=== PATIENT | female | born 1980 | race Two or more races ===

== ENCOUNTER 2017-01-03 10:52 | Emergency (ER) | payer OTHER ==
[~2017-01-03] VITALS: Ht 165.1 cm; Wt 104.3 kg
[~2017-01-03 10:52] MED LIST: HYDR-971 PO; SULF1TAB24 PO
[2017-01-03 11:05] VITALS: BP 131/90
[2017-01-03] MEDS ORDERED: AMOX1TAB61 PO (11:46)
--- NOTE | 2017-01-03 11:46 | PHYS DOC ---
Past Medical History Past Medical History: Other Additional Past Medical Histor: Gestational Diabetes with last . Past Surgical History: , Tubal ligation Alcohol Use: None Drug Use: None Adult General Chief Complaint Chief Complaint: COUGH HPI HPI Patient is a 36 year old female presents emergency department stating that she' s had a cough and congestion for the last 2 weeks. Patient states that she has been taking Mucinex [id number] to help with the secretions. Patient denies any fever, chills she denies any nausea or vomiting. Review of Systems Review of Systems Constitutional: Denies fever or chills [] Eyes: Denies change in visual acuity, redness, or eye pain [] HENT: nasal congestion denies sore throat [] Respiratory: cough and shortness of breath with breathing Cardiovascular: No additional information not addressed in HPI [] GI: Denies abdominal pain, nausea, vomiting, bloody stools or diarrhea [] : Denies dysuria or hematuria [] Musculoskeletal: Denies back pain or joint pain [] Integument: Denies rash or skin lesions [] Neurologic: Denies headache, focal weakness or sensory changes [] Allergies Allergies Allergies Coded Allergies Type Severity Reaction Last Updated Verified No Known Drug Allergies 06/08/16 No Physical Exam Physical Exam Constitutional: Well developed, well nourished, no acute distress, non-toxic appearance. [] HENT: Normocephalic, atraumatic, bilateral external ears normal, oropharynx moist, no oral exudates, nose normal. Bilateral tympanic membranes appear to be normal. Throat with erythematous no exudate or tonsillar swelling noted. Patient with frontal sinus tenderness no maxillary sinus tenderness noted Eyes: PERRLA, EOMI, conjunctiva normal, no discharge. [] Neck: Normal range of motion, no tenderness, supple, no stridor. [] Cardiovascular:Heart rate regular rhythm, no murmur [] Lungs & Thorax: Bilateral breath sounds clear to auscultation [] Skin: Warm, dry, no erythema, no rash. [] Back: No tenderness Extremities: No tenderness, no cyanosis, no clubbing, ROM intact, no edema. [] Neurologic: Alert and oriented X 3, normal motor function, normal sensory function, no focal deficits noted. [] Psychologic: Affect normal, judgement normal, mood normal. [] Current Patient Data Vital Signs Vital Signs Date Time Temp Pulse Resp B/P Pulse Ox O2 Delivery O2 Flow Rate FiO2 01/03/17 11:05 98.6 86 18 131/90 97 Room Air 98.6 EKG EKG [] Radiology/Procedures Radiology/Procedures [] Course & Med Decision Making Course & Med Decision Making Pertinent Labs and Imaging studies reviewed. (See chart for details) Patient was noted to have frontal sinus tenderness. She was recommended to use Sudafed to help with the frontal head pressure and discomfort. She was also recommended to use Mucinex DM to help with providing secretions as well as helping with the cough. She was encouraged to use Tylenol or ibuprofen for fever chills or generalized body aches and discomfort. Recommended plenty of fluids. Signs symptoms to return back to emergency department as been provided. Patient will be placed on Augmentin. Patient will be discharged home in stable condition. [] Dragon Disclaimer Dragon Disclaimer This electronic medical record was generated, in whole or in part, using a voice recognition dictation system. Departure Departure Impression: Primary Impression: Acute sinusitis Disposition: 01 HOME, SELF-CARE Condition: STABLE Referrals: NO PCP (PCP) Patient Instructions: Sinusitis, [id number] Additional Instructions: Home to rest. Medication as prescribed. Drink plenty of fluids. Sudafed may be taken to help with the sinus pressure take this instructed by statement clerks supervisor. Mucinex DM will help liquefy the secretions as well as helping with the cough. Please take this medication as prescribed by statement clerks supervisor as well. Tylenol or ibuprofen for fever chills or generalized body aches and discomfort. Follow-up primary care physician next 7-10 days. Return back to emergency prior signs symptoms of become worse. Scripts Amoxicillin/Potassium Clav (Augmentin 875-125 Tablet)1 Each Tablet1 Tab PO BID # 20 TAB Prov:AMY MARTINEZ APRN 01/03/17 AMY MARTINEZ APRN Jan 03, 2017 11:46
== END 2017-01-03 11:56 | disposition home or self-care (01) ==
LOC: ER 10:52
DX: J01.10 Acute frontal sinusitis, unspecified (principal)
CPT/HCPCS: 99283

== ENCOUNTER 2017-03-01 04:09 | Emergency (ER) | payer OTHER ==
[~2017-03-01] VITALS: Ht 165.1 cm; Wt 104.3 kg
[~2017-03-01 04:09] MED LIST changes: +AMOX1TAB61 PO
[2017-03-01 04:21] VITALS: BP 125/78
[2017-03-01] MEDS ORDERED: SULF1TAB24 PO (05:05)
--- NOTE | 2017-03-01 05:05 | PHYS DOC ---
Past Medical History Past Medical History: Other Additional Past Medical Histor: Gestational Diabetes with last . Past Surgical History: , Tubal ligation Alcohol Use: None Drug Use: None Adult General Chief Complaint Chief Complaint: VAGINAL PROBLEM HPI HPI Patient is a 36 year old female who presents here today secondary to a small abscess on her external labia majora. On the right side. Patient reports that she's had a large emesis in the past that need to be drained and a catheter was placed in it. She reports this feels slightly different. Patient denies any fevers shakes chills nausea vomiting diarrhea chest pain or shortness of breath. Patient's physical exam was significant for a small 0.5 x 0.5 cm folliculitis to her right external labia majora. Review of systems Constitutional: Denies fever or chills [] Eyes: Denies change in visual acuity, redness, or eye pain [] All other review systems are negative except as documented in the history of present illness portion. Physical exam Constitutional: Well developed, well nourished, no acute distress, non-toxic appearance. [] HENT: Normocephalic, atraumatic, bilateral external ears normal, oropharynx moist, no oral exudates, nose normal. [] Eyes: conjunctiva normal, no discharge. [] Neck: Normal range of motion, no tenderness, supple, no stridor. [] Cardiovascular:Heart rate regular rhythm, Lungs & Thorax: Bilateral breath sounds clear to auscultation [] Abdomen: Bowel sounds normal, soft, no tenderness, no masses, no pulsatile masses. [] Skin: Warm, dry, Back: No tenderness, Extremities: No tenderness, no cyanosis, Neurologic: Alert and oriented X 3, normal motor function, normal sensory function, no focal deficits noted. [] Psychologic: Affect normal, judgement normal, mood normal. [] Assessment and plan 36-year-old female who presents to the ER today with folliculitis of her labia. Patient be discharged home on Bactrim. There is no indication for incision and drainage. Patient stable for discharged home. Review of Systems Review of Systems Constitutional: Denies fever or chills [] Eyes: Denies change in visual acuity, redness, or eye pain [] HENT: Denies nasal congestion or sore throat [] Respiratory: Denies cough or shortness of breath [] Cardiovascular: No additional information not addressed in HPI [] GI: Denies abdominal pain, nausea, vomiting, bloody stools or diarrhea [] : Denies dysuria or hematuria [] Musculoskeletal: Denies back pain or joint pain [] Integument: Denies rash or skin lesions [] Neurologic: Denies headache, focal weakness or sensory changes [] Endocrine: Denies polyuria or polydipsia [] Current Medications Current Medications Current Medications Medications (Trade) Dose Ordered Sig/Jack Start Time Stop Time Status Last Admin Dose Admin Ibuprofen (Motrin) 600 mg 1X ONCE 03/01/17 05:30 03/01/17 05:30 DC 03/01/17 05:13 600 MG Trimethoprim/ Sulfamethoxazole (Bactrim Ds) 2 tab 1X ONCE 03/01/17 05:30 03/01/17 05:30 DC 03/01/17 05:13 2 TAB Allergies Allergies Allergies Coded Allergies Type Severity Reaction Last Updated Verified No Known Drug Allergies 06/08/16 No Physical Exam Physical Exam Constitutional: Well developed, well nourished, no acute distress, non-toxic appearance. [] HENT: Normocephalic, atraumatic, bilateral external ears normal, oropharynx moist, no oral exudates, nose normal. [] Eyes: PERRLA, EOMI, conjunctiva normal, no discharge. [] Neck: Normal range of motion, no tenderness, supple, no stridor. [] Cardiovascular:Heart rate regular rhythm, no murmur [] Lungs & Thorax: Bilateral breath sounds clear to auscultation [] Abdomen: Bowel sounds normal, soft, no tenderness, no masses, no pulsatile masses. [] Skin: Warm, dry, no erythema, no rash. [] Back: No tenderness, no CVA tenderness. [] Extremities: No tenderness, no cyanosis, no clubbing, ROM intact, no edema. [] Neurologic: Alert and oriented X 3, normal motor function, normal sensory function, no focal deficits noted. [] Psychologic: Affect normal, judgement normal, mood normal. [] Current Patient Data Vital Signs Vital Signs Date Time Temp Pulse Resp B/P (MAP) Pulse Ox O2 Delivery O2 Flow Rate FiO2 03/01/17 04:21 97.7 79 18 100 Room Air 97.7 EKG EKG [] Radiology/Procedures Radiology/Procedures [] Course & Med Decision Making Course & Med Decision Making Pertinent Labs and Imaging studies reviewed. (See chart for details) [] Dragon Disclaimer Dragon Disclaimer This electronic medical record was generated, in whole or in part, using a voice recognition dictation system. Departure Departure Impression: Primary Impression: Folliculitis Disposition: HOME, SELF-CARE Condition: IMPROVED Referrals: NO PCP (PCP) Patient Instructions: Abscess Scripts Sulfamethoxazole/Trimethoprim (BACTRIM DS TABLET) 1 Each Tablet 2 TAB PO BID for 10 Days, TAB Prov: KIMBERLY PALACIO MD 03/01/17 KIMBERLY PALACIO MD Mar 01, 2017 05:05
[2017-03-01] MEDS ORDERED: SMZ/TMP 800/160MG TABLET. PO ONE (05:30)
[2017-03-01] MEDS ORDERED: IBUPROFEN 600 MG TABLET. PO ONE (05:30)
== END 2017-03-01 05:16 | disposition home or self-care (01) ==
LOC: ER 04:09
DX: L73.9 Follicular disorder, unspecified (principal); Z98.51 Tubal ligation status
CPT/HCPCS: 99283

== ENCOUNTER 2017-09-25 13:30 | Emergency (ER) | payer OTHER ==
[2017-09-25] MEDS: IPRATRPIUM/ALBUTEROL 0.5/2.5MG 3 ML NEBU. NEB (14:43)
[2017-09-25] MEDS: predniSONE 10 MG TABLET PO (14:55)
== END 2017-09-25 15:15 | disposition home or self-care (01) ==
LOC: ER 13:30
DX: J20.9 Acute bronchitis, unspecified (principal); Z98.51 Tubal ligation status
CPT/HCPCS: 94640; 99283-25; J7512; J7620

== ENCOUNTER 2018-08-24 17:12 | Emergency (ER) | payer BC, OTHER ==
[~2018-08-24] VITALS: Ht 165.1 cm; Wt 95.7 kg
[~2018-08-24 17:12] MED LIST changes: +AZIT250T6 PO; +HYDR-3164 PO; -HYDR-971 PO; +PRED20TA PO; +PROAIR HFA8.5 GM INH
[2018-08-24 17:35] VITALS: BP 123/70
[2018-08-24] MEDS ORDERED: AMOX500C PO (17:45)
--- NOTE | 2018-08-24 17:45 | PHYS DOC ---
Past Medical History Past Medical History: Other Additional Past Medical Histor: Gestational Diabetes with last . Past Surgical History: , Tubal ligation Alcohol Use: Rarely Drug Use: None Adult General Chief Complaint Chief Complaint: SORE THROAT HPI HPI Patient is a 38 year old female who presents with sore throat for 3 days. Patient is also complaining of fevers up to 100. She is also complaining of a cough since this morning. Denies any nasal congestion. Review of Systems Review of Systems Constitutional: Reports fever Eyes: Denies change in visual acuity, redness, or eye pain [] HENT: Reports sore throat. Denies nasal congestion Respiratory: Reports cough, shortness of breath [] Cardiovascular: No additional information not addressed in HPI [] GI: Denies abdominal pain, nausea, vomiting, bloody stools or diarrhea [] : Denies dysuria or hematuria [] Musculoskeletal: Denies back pain or joint pain [] Integument: Denies rash or skin lesions [] Neurologic: Denies headache, focal weakness or sensory changes [] All other systems were reviewed and found to be within normal limits, except as documented in this note. Allergies Allergies Allergies Coded Allergies Type Severity Reaction Last Updated Verified No Known Drug Allergies 06/08/16 No Physical Exam Physical Exam Constitutional: Well developed, well nourished, no acute distress, non-toxic appearance. [] HENT: Normocephalic, atraumatic, bilateral external ears normal, oropharynx moist, no oral exudates, nose normal. [] +tonsils with mild erythema and exudate on the right side. +2 anterior cervical adenopathy. Eyes: PERRLA, EOMI, conjunctiva normal, no discharge. [] Neck: Normal range of motion, no tenderness, supple, no stridor. [] Cardiovascular:Heart rate regular rhythm, no murmur [] Lungs & Thorax: Bilateral breath sounds clear to auscultation [] Abdomen: Bowel sounds normal, soft, no tenderness, no masses, no pulsatile masses. [] Skin: Warm, dry, no erythema, no rash. [] Back: No tenderness, no CVA tenderness. [] Extremities: No tenderness, no cyanosis, no clubbing, ROM intact, no edema. [] Neurologic: Alert and oriented X 3, normal motor function, normal sensory function, no focal deficits noted. [] Psychologic: Affect normal, judgement normal, mood normal. [] Current Patient Data Vital Signs Vital Signs Date Time Temp Pulse Resp B/P (MAP) Pulse Ox O2 Delivery O2 Flow Rate FiO2 08/24/18 17:35 97.9 81 16 123/70 (87) 97 Room Air 97.9 EKG EKG [] Radiology/Procedures Radiology/Procedures [] Course & Med Decision Making Course & Med Decision Making Pertinent Labs and Imaging studies reviewed. (See chart for details) This is a 38-year-old female patient presented to the ED today with sore throat cough and a fever. Positive rapid strep. Discharged with amoxicillin for 10 days. Tylenol Motrin for pain or fever. Saltwater gargles recommended. Follow- up with PCP in 1-2 weeks. Provided return precautions and discharged in stable condition. Dragon Disclaimer Dragon Disclaimer This electronic medical record was generated, in whole or in part, using a voice recognition dictation system. Departure Departure Impression: Primary Impression: Acute streptococcal pharyngitis Additional Impressions: Cough Fever Disposition: 01 HOME, SELF-CARE Condition: STABLE Referrals: NO PCP (PCP) Follow-up in 1-2 weeks Patient Instructions: Cough, Adult, Fever, Adult, Strep Infections Additional Instructions: You have a positive rapid strep test. We put you on antibiotics, ensure you complete them. Take Tylenol/ Motrin for pain or fever. Use saltwater gargles. Follow-up with your doctor in 1-2 weeks. Scripts Amoxicillin (AMOXICILLIN) 500 Mg Capsule 1 CAP PO TID, #30 CAP Prov: MYRNA MART APRN 08/24/18 Problem Qualifiers Additional Impressions: Fever Fever type: unspecified Qualified Codes: R50.9 - Fever, unspecified FEMICRISTÓBALMYRNA Acuna APRN Aug 24, 2018 17:45
== END 2018-08-24 17:49 | disposition home or self-care (01) ==
LOC: ER 17:12
DX: J02.0 Streptococcal pharyngitis (principal); B95.4 Other streptococcus as the cause of diseases classified elsewhere; Z98.890 Other specified postprocedural states; Z98.51 Tubal ligation status
CPT/HCPCS: 87880; 99283

== ENCOUNTER 2018-09-24 16:13 | Emergency (ER) | payer BC ==
[~2018-09-24] VITALS: Ht 165.1 cm; Wt 95.7 kg
[~2018-09-24 16:13] MED LIST changes: +ALBU2.5V8 INH; +AMOX500C PO; -PROAIR HFA8.5 GM INH
[2018-09-24 16:35] VITALS: BP 138/77
--- NOTE | 2018-09-24 16:40 | PHYS DOC ---
Past Medical History Past Medical History: Other Additional Past Medical Histor: Gestational Diabetes with last . Past Surgical History: , Tubal ligation Alcohol Use: Rarely Drug Use: None Adult General Chief Complaint Chief Complaint: SORE THROAT HPI HPI Patient is a 38 year old female who presents with had strep 3 weeks ago and was treated. Patient states that she took all her antibiotics in a week after the antibiotics were done she began having a sore throat again. She denies fever , rhinorrhea, nasal congestion, cough, nausea, vomiting, chest pain, shortness of air, ear pain. Review of Systems Review of Systems Constitutional: Denies fever or chills [] Eyes: Denies change in visual acuity, redness, or eye pain [] HENT: Denies nasal congestion. +sore throat [] Respiratory: Denies cough or shortness of breath [] Cardiovascular: No additional information not addressed in HPI [] GI: Denies abdominal pain, nausea, vomiting, bloody stools or diarrhea [] : Denies dysuria or hematuria [] Musculoskeletal: Denies back pain or joint pain [] Integument: Denies rash or skin lesions [] Neurologic: Denies headache, focal weakness or sensory changes [] Endocrine: Denies polyuria or polydipsia [] All other systems were reviewed and found to be within normal limits, except as documented in this note. Allergies Allergies Allergies Coded Allergies Type Severity Reaction Last Updated Verified No Known Drug Allergies 06/08/16 No Physical Exam Physical Exam Constitutional: Well developed, well nourished, no acute distress, non-toxic appearance. [] HENT: Normocephalic, atraumatic, bilateral external ears normal, oropharynx moist, no oral exudates, nose normal. Throat red and slightly swollen[] Eyes: PERRLA, EOMI, conjunctiva normal, no discharge. [] Neck: Normal range of motion, no tenderness, supple, no stridor. [] Cardiovascular:Heart rate regular rhythm, no murmur [] Lungs & Thorax: Bilateral breath sounds clear to auscultation [] Abdomen: Bowel sounds normal, soft, no tenderness, no masses, no pulsatile masses. [] Skin: Warm, dry, no erythema, no rash. [] Back: No tenderness, no CVA tenderness. [] Extremities: No tenderness, no cyanosis, no clubbing, ROM intact, no edema. [] Neurologic: Alert and oriented X 3, normal motor function, normal sensory function, no focal deficits noted. [] Psychologic: Affect normal, judgement normal, mood normal. [] Current Patient Data Vital Signs Vital Signs Date Time Temp Pulse Resp B/P (MAP) Pulse Ox O2 Delivery O2 Flow Rate FiO2 09/24/18 16:35 97.8 76 18 138/77 (97) 98 Room Air 97.8 EKG EKG [] Radiology/Procedures Radiology/Procedures [] Course & Med Decision Making Course & Med Decision Making Patient is a 38 year old female who presents with had strep 3 weeks ago and was treated. Patient states that she took all her antibiotics in a week after the antibiotics were done she began having a sore throat again. She denies fever , rhinorrhea, nasal congestion, cough, nausea, vomiting, chest pain, shortness of air, ear pain. Alert and oriented. Ambulatory with a steady gait. Speaks in full clear sentences. Skin pink warm and dry. Mucous murmurs are moist. Abdomen is soft and nontender. Throat is red and slightly swollen but no exudates are seen. Strep Positive. Patient needs to follow up with primary care within the next week. Dragon Disclaimer Dragon Disclaimer This electronic medical record was generated, in whole or in part, using a voice recognition dictation system. Departure Departure Impression: Primary Impression: Acute streptococcal pharyngitis Disposition: 01 HOME, SELF-CARE Condition: STABLE Referrals: NO PCP (PCP) Patient Instructions: Strep Throat Additional Instructions: Follow-up with her primary care provider. Try warm salt water gargles. Use over- the-counter throat lozenges and throat sprays to help with pain. Take ibuprofen or Tylenol for pain. Scripts Amoxicillin (AMOXICILLIN) 875 Mg Tablet 1 TAB PO BID, #20 TAB Prov: AMY PISANO APRN 09/24/18 AMY PISANO APRN Sep 24, 2018 16:40
[2018-09-24] MEDS ORDERED: AMOX875T PO (17:45)
== END 2018-09-24 17:55 | disposition home or self-care (01) ==
LOC: ER 16:13
DX: J02.0 Streptococcal pharyngitis (principal); B95.5 Unspecified streptococcus as the cause of diseases classified elsewhere; Z98.890 Other specified postprocedural states; Z98.51 Tubal ligation status
CPT/HCPCS: 87880; 99283

== ENCOUNTER 2019-09-13 16:28 | Emergency (ER) | payer BC ==
[~2019-09-13] VITALS: Ht 165.1 cm; Wt 102.1 kg
[~2019-09-13 16:28] MED LIST changes: +AMOX875T PO
[2019-09-13 17:28] VITALS: BP 145/87
[2019-09-13] MEDS ORDERED: LIDOCAINE 2% VISCOUS 15 ML SOLUTION. MM ONE (17:45)
--- NOTE | 2019-09-13 18:33 | RAD ---
CT maxillofacial without contrast: Reason for examination: Right upper dental abscess with facial swelling. Helical images were obtained through the maxillofacial structures with no contrast administered. Reconstruction was performed in sagittal and coronal planes. Exposure: One or more of the following individualized dose reduction techniques were utilized for this examination: 1. Automated exposure control 2. Adjustment of the mA and/or kV according to patient size 3. Use of iterative reconstruction technique. The palmer of the orbits appear to be intact. Orbital structures show no acute abnormalities. The paranasal sinuses show some mild mucosal disease in the ethmoid air cells bilaterally. There is a small polypoid lesion in the sphenoid sinus measuring approximately 6 mm in size. The maxillary antra show a 1.4 cm polypoid lesion in the left maxillary sinus inferiorly. There is also complete opacification of the right maxillary antrum. There are dental caries present in the right molars with adjacent soft tissue edema and small air bubbles over a 1.4 cm craniocaudally, 2.2 cm in AP dimension and 0.9 cm transaxially consistent with an abscess lateral to the molars. No acute bony abnormality seen at the mandible. There are dental caries present in the mandibular dentition. No abnormality seen at the temporomandibular joints. No abnormalities are seen at the parotid or submandibular glands. A few small lymph nodes are present in the submandibular region measuring up to 1.7 cm in length. Muscular bundles appear to be symmetric. There is mild deviation of the nasal septum to the right. Nasal turbinates appear to be symmetric. Cervical spine visualized shows no acute fracture or subluxation and the intervertebral discs are maintained. IMPRESSION: Dental caries bilaterally in the maxillary and mandibular dentition especially at the right molars. Soft tissue edema and abscess measuring approximately 1.4 x 2.2 x 0.9 cm in craniocaudal, AP and transverse dimensions lateral to the dental caries in the right molars. Prominent reactive lymph nodes in the submandibular region. Complete opacification of the right maxillary antrum. Polypoid lesions in the left maxillary antrum and sphenoid sinus. Electronically signed by: Shani Nina MD (09/13/2019 6:30 PM) [id number]
[2019-09-13] MEDS ORDERED: CLIN150C14 PO (18:41)
[2019-09-13] MEDS ORDERED: CHLO15MO2 SWSP (18:41)
--- NOTE | 2019-09-13 18:41 | PHYS DOC ---
Past Medical History Past Medical History: Diabetes-Type II, Other Additional Past Medical Histor: Gestational Diabetes with last . Past Surgical History: , Tubal ligation Alcohol Use: Rarely Drug Use: None Adult General Chief Complaint Chief Complaint: DENTAL PROBLEM HPI HPI Patient is a 39 year old [f__sex] who presents with [] Review of Systems Review of Systems Constitutional: Denies fever or chills [] Eyes: Denies change in visual acuity, redness, or eye pain [] HENT: Denies nasal congestion or sore throat [] Respiratory: Denies cough or shortness of breath [] Cardiovascular: No additional information not addressed in HPI [] GI: Denies abdominal pain, nausea, vomiting, bloody stools or diarrhea [] : Denies dysuria or hematuria [] Musculoskeletal: Denies back pain or joint pain [] Integument: Denies rash or skin lesions [] Neurologic: Denies headache, focal weakness or sensory changes [] Endocrine: Denies polyuria or polydipsia [] All other systems were reviewed and found to be within normal limits, except as documented in this note. Current Medications Current Medications Current Medications Medications (Trade) Dose Ordered Sig/Jack Start Time Stop Time Status Last Admin Dose Admin Lidocaine HCl (Viscous Lidocaine) 15 ml 1X ONCE 09/13/19 17:45 09/13/19 17:46 DC 09/13/19 17:43 15 ML Allergies Allergies Allergies Coded Allergies Type Severity Reaction Last Updated Verified No Known Drug Allergies 06/08/16 No Physical Exam Physical Exam Constitutional: Well developed, well nourished, no acute distress, non-toxic appearance. [] HENT: Normocephalic, atraumatic, bilateral external ears normal, oropharynx moist, no oral exudates, nose normal. [] Eyes: PERRLA, EOMI, conjunctiva normal, no discharge. [] Neck: Normal range of motion, no tenderness, supple, no stridor. [] Cardiovascular:Heart rate regular rhythm, no murmur [] Lungs & Thorax: Bilateral breath sounds clear to auscultation [] Abdomen: Bowel sounds normal, soft, no tenderness, no masses, no pulsatile kalin s. [] Skin: Warm, dry, no erythema, no rash. [] Back: No tenderness, no CVA tenderness. [] Extremities: No tenderness, no cyanosis, no clubbing, ROM intact, no edema. [] Neurologic: Alert and oriented X 3, normal motor function, normal sensory function, no focal deficits noted. [] Psychologic: Affect normal, judgement normal, mood normal. [] Current Patient Data Vital Signs Vital Signs Date Time Temp Pulse Resp B/P (MAP) Pulse Ox O2 Delivery O2 Flow Rate FiO2 09/13/19 17:28 98.7 86 16 145/87 (106) 98 Room Air 98.7 EKG EKG [] Radiology/Procedures Radiology/Procedures PROCEDURE: CT MAXILLOFACIAL WO CONTRAST CT maxillofacial without contrast: Reason for examination: Right upper dental abscess with facial swelling. Helical images were obtained through the maxillofacial structures with no contrast administered. Reconstruction was performed in sagittal and coronal planes. Exposure: One or more of the following individualized dose reduction techniques were utilized for this examination: 1. Automated exposure control 2. Adjustment of the mA and/or kV according to patient size 3. Use of iterative reconstruction technique. The palmer of the orbits appear to be intact. Orbital structures show no acute abnormalities. The paranasal sinuses show some mild mucosal disease in the ethmoid air cells bilaterally. There is a small polypoid lesion in the sphenoid sinus measuring approximately 6 mm in size. The maxillary antra show a 1.4 cm polypoid lesion in the left maxillary sinus inferiorly. There is also complete opacification of the right maxillary antrum. There are dental caries present in the right molars with adjacent soft tissue edema and small air bubbles over a 1.4 cm craniocaudally, 2.2 cm in AP dimension and 0.9 cm transaxially consistent with an abscess lateral to the molars. No acute bony abnormality seen at the mandible. There are dental caries present in the mandibular dentition. No abnormality seen at the temporomandibular joints. No abnormalities are seen at the parotid or submandibular glands. A few small lymph nodes are present in the submandibular region measuring up to 1.7 cm in length. Muscular bundles appear to be symmetric. There is mild deviation of the nasal septum to the right. Nasal turbinates appear to be symmetric. Cervical spine visualized shows no acute fracture or subluxation and the intervertebral discs are maintained. IMPRESSION: Dental caries bilaterally in the maxillary and mandibular dentition especially at the right molars. Soft tissue edema and abscess measuring approximately 1.4 x 2.2 x 0.9 cm in craniocaudal, AP and transverse dimensions lateral to the dental caries in the right molars. Prominent reactive lymph nodes in the submandibular region. Complete opacification of the right maxillary antrum. Polypoid lesions in the left maxillary antrum and sphenoid sinus.[] Course & Med Decision Making Course & Med Decision Making Pertinent Labs and Imaging studies reviewed. (See chart for details) [] Dragon Disclaimer Dragon Disclaimer This electronic medical record was generated, in whole or in part, using a voice recognition dictation system. Departure Departure Impression: Primary Impression: Abscess, dental Additional Impression: Dentalgia Disposition: HOME, SELF-CARE Condition: STABLE Referrals: NO PCP (PCP) Patient Instructions: Dental Abscess Additional Instructions: Fill prescription(s) and use as directed. Follow up with dentist using the referral list provided. Return to the ER if symptoms worsen. Scripts Chlorhexidine Gluconate (PERIDEX) 15 Ml Mouthwash 15 ML SWSP BID for 7 Days, #473 ML 0 Refills [place] teeth before using to prevent staining. Swish for approximately 30 seconds before spitting. Prov: PRASANTH BYERS APRN 09/13/19 Clindamycin Hcl (CLINDAMYCIN HCL) 150 Mg Capsule 450 MG PO TID for 7 Days, #63 CAP 0 Refills Prov: PRASANTH BYERS APRN 09/13/19 Problem Qualifiers PRASANTH BYERS APRN Sep 13, 2019 18:41
== END 2019-09-13 18:50 | disposition home or self-care (01) ==
LOC: ER 16:28
DX: K04.6 Periapical abscess with sinus (principal); K08.89 Other specified disorders of teeth and supporting structures; E11.9 Type 2 diabetes mellitus without complications; Z98.51 Tubal ligation status; Z98.890 Other specified postprocedural states
CPT/HCPCS: 70486; 99284

== ENCOUNTER 2019-09-18 14:34 | Emergency (ER) | payer BC ==
[~2019-09-18] VITALS: Ht 165.1 cm; Wt 99.8 kg
[~2019-09-18 14:34] MED LIST changes: +CHLO15MO2 SWSP; +CLIN150C14 PO
[2019-09-18 15:20] VITALS: BP 138/74
[2019-09-18] MEDS ORDERED: DEXAMETHASONE 4 MG TABLET PO STA (15:35)
[2019-09-18] MEDS ORDERED: OSEL75CA PO (15:37)
[2019-09-18] MEDS ORDERED: ONDA4TAB12 PO (15:37)
[2019-09-18] MEDS ORDERED: BENZ100C PO (15:37)
--- NOTE | 2019-09-18 15:37 | PHYS DOC ---
Past Medical History Past Medical History: Diabetes-Type II, Other Additional Past Medical Histor: Gestational Diabetes with last . (NOE SANTOS APRN) Past Surgical History: , Tubal ligation (NOE SANTOS APRN) Alcohol Use: Rarely Drug Use: None (NOE SANTOS APRN) Adult General Chief Complaint Chief Complaint: FLU SYMPTOM HPI HPI Patient is a 39 year old female who presents with headache, sore throat, runny nose, cough that started this morning. Her son tested positive for the flu on Friday. She was able to keep fluids down at home and appears to be hydrated. (NOE SANTOS APRN) Review of Systems Review of Systems Constitutional: Reports fever or chills and body aches. Eyes: Denies change in visual acuity, redness, or eye pain [] HENT: denies nasal congestion, sore throat, and runny nose. Respiratory: Reports cough. Denies shortness of breath. Cardiovascular: No additional information not addressed in HPI [] GI: Reports nausea and vomiting. Denies abdominal pain, bloody stools or diarrhea [] : Denies dysuria or hematuria [] Musculoskeletal: Denies back pain or joint pain [] Integument: Denies rash or skin lesions [] Neurologic: Reports headache, denies focal weakness or sensory changes [] Endocrine: Denies polyuria or polydipsia [] Complete systems were reviewed and found to be within normal limits, except as documented in this note. (NOE SANTOS APRN) Current Medications Current Medications Current Medications Medications (Trade) Dose Ordered Sig/Jack Start Time Stop Time Status Last Admin Dose Admin Dexamethasone (Decadron) 10 mg 1X STAT 09/18/19 15:35 09/18/19 15:40 DC 09/18/19 15:53 10 MG (NOE BAUGH DO) Allergies Allergies Allergies Coded Allergies Type Severity Reaction Last Updated Verified No Known Drug Allergies 06/08/16 No (NOE BAUGH DO) Physical Exam Physical Exam Constitutional: Well developed, well nourished, no acute distress, non-toxic appearance. [] HENT: Normocephalic, atraumatic, bilateral external ears normal, bilateral tympanic membranes are pearly [place], oropharynx moist, no oral exudates, nose turbinates are inflamed. Eyes: PERRLA, EOMI, conjunctiva normal, no discharge. [] Neck: Normal range of motion, no tenderness, supple, no stridor. [] Cardiovascular:Heart rate regular rhythm, no murmur [] Lungs & Thorax: Bilateral breath sounds clear to auscultation [] Abdomen: Bowel sounds normal, soft, no tenderness, no masses, no pulsatile mas ses. [] Skin: Warm, dry, no erythema, no rash. [] Neurologic: Alert and oriented X 3, normal motor function, normal sensory fu nction, no focal deficits noted. [] Psychologic: Affect normal, judgement normal, mood normal. [] (NOE SANTOS APRN) Current Patient Data Vital Signs Vital Signs Date Time Temp Pulse Resp B/P (MAP) Pulse Ox O2 Delivery O2 Flow Rate FiO2 09/18/19 15:20 99.0 112 22 138/74 (95) 97 Room Air 99.0 (NOE BAUGH DO) EKG EKG [] (NOE SANTOS APRN) Radiology/Procedures Radiology/Procedures [] (NOE SANTOS APRN) Course & Med Decision Making Course & Med Decision Making Pertinent Labs and Imaging studies reviewed. (See chart for details) The patient appears to have the Flu clinically. Discussed with patient the importance of drinking plenty of fluids. I also discussed the importance of rest. It was discussed with the patient that she is contagious and to stay away from others until it has been a week since the start of her symptoms. Discussed with the patient that she can take Zyrtec per label instructions for runny nose. Also discussed the proper control of fever by rotating Tylenol and Ibuprofen at home. Will give the patient Decadron in the ER for symptom control. Will also prescribe Zofran for nausea. Will also prescribe Tamiflu. (NOE SANTOS APRN) Dragon Disclaimer Dragon Disclaimer This electronic medical record was generated, in whole or in part, using a voice recognition dictation system. (NOE SANTOS APRN) Departure Departure Impression: Primary Impression: Viral syndrome Disposition: HOME, SELF-CARE Condition: STABLE Referrals: NO PCP (PCP) Patient Instructions: Viral Syndrome Additional Instructions: Thank you for visiting [facility]. We appreciate you trusting us with your care. If any additional problems come up don't hesitate to return to visit us. Please follow up with your primary care provider so they can plan additional care if needed and know about the problem that you had. If symptoms worsen come back to the Emergency Department. Any concerning symptoms that start such as chest pain, shortness of air, weakness or numbness on one side of the body, running high fevers or any other concerning symptoms return to the ER. Please be aware that diabetes can cause your sugars to fluctuate while you are sick. This can cause additional issues. Please check your sugars often to ensure they are staying in a safe range and if you are on insulin please take as instructed by your primary care doctor. If you have any questions about this please let us know or contact your primary care provider for additional instruction about taking your insulin while you are sick. If you get concerned regarding your sugar while at home please do not hesitate to come back to the ER. Please fill your medications at any pharmacy and follow the prescription instructions. Please drink plenty of fluids. If unable to keep fluids down please return to ER. Please get Tylenol and Ibuprofen over the counter. Give each medication every 6 hours as directed by the medication labels. In order to utilize the peak of the medications stagger the medications to where the child is getting one of the medications every 3 hours. For example if you give Ibuprofen at 3 PM, you then give Tylenol at 6 PM and Ibuprofen again at 9 PM, and then Tylenol at midnight. Please get Zyrtec over the counter and take per label instructions for runny nose. Scripts Benzonatate (TESSALON PERLE) 100 Mg Capsule 100 MG PO TID PRN for COUGH, #21 CAP Prov: NOE SANTOS APRN 09/18/19 Oseltamivir Phosphate (TAMIFLU) 75 Mg Capsule 75 MG PO BID for FLU for 5 Days, #10 TAB 0 Refills Prov: NOE SANTOS APRN 09/18/19 Ondansetron (ONDANSETRON ODT) 4 Mg Tab.rapdis 1 TAB PO PRN Q6-8HRS PRN for NAUSEA, #16 TAB Prov: NOE SANTOS APRN 09/18/19 Attending Signature Attending Signature I have reviewed the PA/CEMENT [employer]ON APPRENTICE's note and plan of care. I was available for cons ultation as needed during the patient's visit in the emergency department. I agree with the clinical impression, plan, and disposition. (NOE BAUGH DO) NOE SANTOS APRN Sep 18, 2019 15:37 NOE BAUGH DO Sep 22, 2019 19:01
== END 2019-09-18 16:00 | disposition home or self-care (01) ==
LOC: ER 14:34
DX: B34.9 Viral infection, unspecified (principal); R11.2 Nausea with vomiting, unspecified; R05 Cough; R09.89 Other specified symptoms and signs involving the circulatory and respiratory systems; R50.9 Fever, unspecified; E11.9 Type 2 diabetes mellitus without complications; Z98.51 Tubal ligation status; Z98.890 Other specified postprocedural states
CPT/HCPCS: 99283; J8540

== ENCOUNTER 2019-10-18 18:28 | Emergency (ER) | payer BC ==
[~2019-10-18] VITALS: Ht 165.1 cm; Wt 100.0 kg
[~2019-10-18 18:28] MED LIST changes: +BENZ100C PO; +ONDA4TAB12 PO; +OSEL75CA PO
[2019-10-18 19:02] VITALS: BP 130/95
== END 2019-10-18 20:13 | disposition left against medical advice (07) ==
LOC: ER 18:28
DX: J02.9 Acute pharyngitis, unspecified (principal); R05 Cough; R09.81 Nasal congestion
CPT/HCPCS: 99281

== ENCOUNTER 2020-03-03 15:26 | Emergency (ER) | payer SELFPAY ==
[~2020-03-03] VITALS: Ht 165.1 cm; Wt 93.0 kg
[2020-03-03 16:09] VITALS: BP 116/66
--- NOTE | 2020-03-03 16:48 | PHYS DOC ---
Past Medical History Past Medical History: Diabetes-Type II, Other Additional Past Medical Histor: Gestational Diabetes with last . Past Surgical History: , Tubal ligation Smoking Status: Never Smoker Alcohol Use: Rarely Drug Use: None General Adult EDM: Chief Complaint: TOE PROBLEM HPI: HPI: Patient is a 39 year old female who presents for the past 3 to 4 days she had a left fifth toe pain and tenderness. She does not remember injuring it. She is diabetic and does have neuropathy in her feet. She rates her pain 8 out of 10. Review of Systems: Review of Systems: Musculoskeletal: Denies back pain. Left fifth toe joint pain. [] Heart Score: Risk Factors: Risk Factors: DM, Current or recent (<one month) smoker, HTN, HLP, family history of CAD, obesity. Risk Scores: Score 0 - 3: 2.5% MACE over next 6 weeks - Discharge Home Score 4 - 6: 20.3% MACE over next 6 weeks - Admit for Clinical Observation Score 7 - 10: 72.7% MACE over next 6 weeks - Early Invasive Strategies Allergies: Allergies: Allergies Coded Allergies Type Severity Reaction Last Updated Verified No Known Drug Allergies 06/08/16 No Physical Exam: PE: Constitutional: Well developed, well nourished, no acute distress, non-toxic appearance. [] HENT: Normocephalic, atraumatic, bilateral external ears normal, oropharynx moist, no oral exudates, nose normal. [] Eyes: PERRLA, EOMI, conjunctiva normal, no discharge. [] Neck: Normal range of motion, no tenderness, supple, no stridor. [] Cardiovascular:Heart rate regular rhythm, no murmur [] Lungs & Thorax: Bilateral breath sounds clear to auscultation [] Abdomen: Bowel sounds normal, soft, no tenderness, no masses, no pulsatile masses. [] Skin: Warm, dry, no erythema, no rash. [] Back: No tenderness, no CVA tenderness. [] Extremities: Left fifth toe tenderness, no cyanosis, no clubbing, ROM intact, no edema. [] Neurologic: Alert and oriented X 3, normal motor function, normal sensory function, no focal deficits noted. [] Psychologic: Affect normal, judgement normal, mood normal. [] Current Patient Data: Vital Signs: Vital Signs Date Time Temp Pulse Resp B/P (MAP) Pulse Ox O2 Delivery O2 Flow Rate FiO2 03/03/20 16:09 98.3 76 16 116/66 (83) 98 Room Air 98.3 EKG: EKG: [] Radiology/Procedures: Radiology/Procedures: [] Course & Med Decision Making: Course & Med Decision Making Pertinent Labs and Imaging studies reviewed. (See chart for details) Left fifth toe nail looks to be pushed up as if it were jammed. There is no laceration or wound. The toe which is very tender. There is no swelling seen. Patient can wiggle her toes but it is painful especially in the fifth toe. Denies any other foot pain. She is diabetic and does have neuropathy. She states she does not remember injuring it but she could have injured it. No signs of infection. Patient eloped. No x-rays were done. [] Dragon Disclaimer: Dragon Disclaimer: This electronic medical record was generated, in whole or in part, using a voice recognition dictation system. Departure Departure Impression: Primary Impression: Toe pain, left Disposition: 07 AGAINST MEDICAL ADVICE (eloped) Condition: STABLE Referrals: NO PCP (PCP) Justicifation of Admission Dx: Justifications for Admission: Justification of Admission Dx: N/A AMY PISANO COSMETIC ACCOUNT COORDINATOR Mar 03, 2020 16:48
== END 2020-03-03 17:10 | disposition left against medical advice (07) ==
LOC: ER 15:26
DX: M79.675 Pain in left toe(s) (principal); E11.9 Type 2 diabetes mellitus without complications; Z98.51 Tubal ligation status; Z98.890 Other specified postprocedural states
CPT/HCPCS: 99281

== ENCOUNTER 2020-05-03 10:21 | Emergency (ER) | payer OTHER ==
[~2020-05-03] VITALS: Ht 165.1 cm; Wt 105.0 kg
[2020-05-03 10:40] VITALS: BP 118/77
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
[2020-05-03] MEDS ORDERED: METH-38 PO (11:28)
[2020-05-03] MEDS ORDERED: NAPR-514 PO (11:28)
== END 2020-05-03 11:35 | disposition home or self-care (01) ==
LOC: ER 10:21
DX: S29.012A Strain of muscle and tendon of back wall of thorax, initial encounter (principal); T22.111A Burn of first degree of right forearm, initial encounter; E11.9 Type 2 diabetes mellitus without complications; V43.52XA Car driver injured in collision with other type car in traffic accident, initial encounter; Y92.488 Other paved roadways as the place of occurrence of the external cause; Y93.89 Activity, other specified; Y99.8 Other external cause status
CPT/HCPCS: 99283

== ENCOUNTER 2020-12-05 17:31 | Emergency (ER) | payer SELFPAY ==
[~2020-12-05] VITALS: Ht 165.1 cm; Wt 95.8 kg
[~2020-12-05 17:31] MED LIST changes: -CLIN150C14 PO; +CLIN150C15 PO; +METH-38 PO; +NAPR-514 PO
[2020-12-05] MEDS ORDERED: IV NORMAL SALINE 1000ML BAG 1,000 ML IV ONE (18:30)
[2020-12-05 18:40] LABS: BILIRUBIN,URINE SMALL (NEG); CLARITY,URINE TURBID; COLOR,URINE AMBER; NITRITE,URINE NEGATIVE (NEG); PH,URINE 5.5 (<5.0-8.0); PROTEIN,URINE 30 mg/dL (NEG-TRACE)
--- NOTE | 2020-12-05 18:55 | PHYS DOC ---
Past Medical History Past Medical History: Diabetes-Type II, Other Additional Past Medical Histor: Gestational Diabetes with last . Past Surgical History: , Tubal ligation Smoking Status: Never Smoker Alcohol Use: Rarely Drug Use: None General Adult EDM: Chief Complaint: VAGINAL PROBLEM HPI: HPI: Isa is a 40 y/o female with a hx of fallopian tube ligation who presents with a watery, bloody vaginal discharge with no clots that started on 11/13/2020. She has a subjective history of irregular periods, but does state she gets a period every month. Her last pap smear was 2 years ago, and it was normal. Isa does not currently have a PCP, nor an line production cook. Her last sexual contact was 3 months ago, and she does describe the penetration as irregularly painful. She says the pain is worse with penetration. The pain is in her left lower inguinal area. She describes the pain as dull and nonradiating. Isa states that her grandmother has cervical cancer but denies any other pertinent family history. The patient denies any menopausal symptoms such as hot flashes, mood swings. Review of Systems: Review of Systems: Constitutional: Denies fever or chills Eyes: Denies redness or eye pain HENT: Denies nasal congestion or sore throat Respiratory: Denies cough or shortness of breath Cardiovascular: Denies chest pain or palpitations GI: Reports lower abdominal pain, nausea, or vomiting : Denies dysuria, reports hematuria Musculoskeletal: Denies back pain or joint pain Integument: Denies rash or skin lesions Neurologic: Denies headache, focal weakness or sensory changes Complete systems were reviewed and found to be within normal limits, except as documented in this note. Heart Score: C/O Chest Pain: N/A Family History: Family History: The patient's grandmother had cervical cancer. Current Medications: Current Medications Medications (Trade) Dose Ordered Sig/Jack Start Time Stop Time Status Last Admin Dose Admin Sodium Chloride 1,000 ml @ 1,000 mls/hr 1X ONCE 12/05/20 18:30 12/05/20 19:29 Allergies: Allergies: Allergies Coded Allergies Type Severity Reaction Last Updated Verified No Known Drug Allergies 06/08/16 No Physical Exam: PE: Constitutional: Well developed, well nourished, no acute distress, non-toxic appearance HENT: Normocephalic, atraumatic Eyes: PERRL, EOMI, conjunctiva normal, no discharge Neck: Normal range of motion, no tenderness, supple, no cervical or supraclavicular lymphadenopathy Lungs & Thorax: No respiratory distress, equal chest rise and fall Abdomen: Negative Sousa's sign, tenderness to light and deep palpation of left lower quadrant, no umbilical nodule noted Pelvic: Snake Charmer Tamara RN, external genitalia normal, mild amount of blood noted in vaginal vault, no CMT, no adnexal tenderness Skin: Warm, dry, no erythema, eczematous rash on left elbow (chronic) Back: No tenderness, no CVA tenderness Extremities: No tenderness, ROM intact, no edema Neurologic: Alert and oriented X 3, normal motor function, normal sensory function, no focal deficits noted Psychologic: Affect normal, judgment normal Current Patient Data: Labs: Laboratory Tests Test 12/05/20 18:02 POC Urine HCG, Qualitative Hcg negative (Negative) Vital Signs: Vital Signs Date Time Temp Pulse Resp B/P (MAP) Pulse Ox O2 Delivery O2 Flow Rate FiO2 12/05/20 17:49 97.9 79 17 131/76 (94) 99 Room Air 97.9 EKG: EKG: [] Radiology/Procedures: Radiology/Procedures: PROCEDURE: TRANSVAGINAL INDICATION: Reason: menorrhagia / Spl. Instructions: / History: COMPARISON: None. TECHNIQUE: Grayscale and color ultrasound images uterus and adnexa. Transvaginal images are obtained as well as transabdominal images to better visualize obscured structures. FINDINGS: Uterus: 108 x 58 x 56 mm. Endometrial stripe is 11 mm. Right Ovary: 21 x 18 x 18 mm. Left Ovary: 29 x 27 x 17 mm. Vascular flow identified to bilateral ovaries. Large cystic mass within the left adnexa measuring 99 x 72 x 67 mm. Nabothian cysts at cervix. There is some internal debris. IMPRESSION: * Large cystic mass within the left adnexa with septation within. Possible causes would include cystic ovarian origin lesion such as cystadenoma or cystadenocarcinoma. Nonemergent follow-up pelvic MRI could further assess for complex component. * Hypoechoic lesion near the cervix could be from causes such as a nabothian cyst with debris within. Electronically signed by: Paul Carrasquillo MD (12/05/2020 7:39 PM) [id number] Course & Med Decision Making: Course & Med Decision Making Isa is a G3, P3 40 year-old patient who presents with approximately 1 month of clear, watery, bloody vaginal discharge. She reports a history of irregular menstruation, but does state that she has a period once a month. She states there is no chance she is , because she has had a fallopian tube ligation. Her last sexual contact was 3 months ago, and she reports pain with penetration. This is not normal for her. The chronicity of her symptoms make ectopic less likely in addition to her negative test. Furthermore, the timing of her symptoms make ovarian torsion less likely. Given the patient's age and symptoms, a TVUS will be ordered. In addition a pelvic exam and GC swab will be done. The patient's hemoglobin, vitals, and pain control were stable, so the determination was made to discharge the patient home. The ultrasound report was discussed in detail with the patient, and her questions were answered and she demonstrated an understanding of the findings. Isa was instructed to follow up with an line production cook as soon as she could. Isa states that she already has an upcoming appointment with a physician, but did not know their specialty. The patient is stable for discharge and is agreeable with the follow up plan. Akua Disclaimer: Akua Disclaimer: This electronic medical record was generated, in whole or in part, using a voice recognition dictation system. Departure Departure Impression: Primary Impression: Metrorrhagia Additional Impressions: Ovarian cystic mass Qualified Codes: N83.202 - Unspecified ovarian cyst, left side Nabothian cyst Disposition: DC HOME SELF CARE/HOMELESS Condition: STABLE Referrals: NO PCP (PCP) KAT HELTON Jr, MD Patient Instructions: Metrorrhagia, [id number], Ovarian Cyst, [id number], Pelvic Mass Additional Instructions: Take over the counter Tylenol and/or Ibuprofen for pain or discomfort. NOE BAUGH DO Dec 05, 2020 18:55
[2020-12-05 18:57] LABS: AMORPHOUS SEDIMENT,UR PRESENT /HPF; HYALINE CASTS, URINE OCCASIONAL /HPF
[2020-12-05 18:58] LABS: RBC,URINE TNTC /HPF (0-2)
[2020-12-05 19:01] LABS: BACTERIA,URINE FEW /HPF (0-FEW)
--- NOTE | 2020-12-05 19:41 | RAD ---
INDICATION: Reason: menorrhagia / Spl. Instructions: / History: COMPARISON: None. TECHNIQUE: Grayscale and color ultrasound images uterus and adnexa. Transvaginal images are obtained as well as transabdominal images to better visualize obscured structures. FINDINGS: Uterus: 108 x 58 x 56 mm. Endometrial stripe is 11 mm. Right Ovary: 21 x 18 x 18 mm. Left Ovary: 29 x 27 x 17 mm. Vascular flow identified to bilateral ovaries. Large cystic mass within the left adnexa measuring 99 x 72 x 67 mm. Nabothian cysts at cervix. There is some internal debris. IMPRESSION: * Large cystic mass within the left adnexa with septation within. Possible causes would include cys tic ovarian origin lesion such as cystadenoma or cystadenocarcinoma. Nonemergent follow-up pelvic MRI could further assess for complex component. * Hypoechoic lesion near the cervix could be from causes such as a nabothian cyst with debris within . Electronically signed by: Paul Carrasquillo MD (12/05/2020 7:39 PM) [id number]
[2020-12-05 20:25] LABS: BASO % 0 % (0-3); EOS # 0.2 x10^3/uL (0.0-0.7); EOS % 3 % (0-3); HEMATOCRIT 36.2 % (36.0-47.0); HEMOGLOBIN 12.1 g/dL (12.0-15.5); LYMPH # 2.1 x10^3/uL (1.0-4.8); LYMPH % 32 % (24-48); MEAN CORPUSCULAR HEMOGLOBIN 28 pg (25-35); MEAN CORPUSCULAR HGB CONC 34 g/dL (31-37); MEAN CORPUSCULAR VOLUME 85 fL (79-100); MONO # 0.6 x10^3/uL (0.0-1.1); MONO % 9 % (0-9); NEUT # 3.7 x10^3/uL (1.8-7.7); NEUT % 55 % (31-73); PLATELET COUNT 275 x10^3/uL (140-400); RED BLOOD COUNT 4.28 x10^6/uL (3.50-5.40); RED CELL DISTRIBUTION WIDTH 13.8 % (11.5-14.5); WHITE BLOOD COUNT 6.7 x10^3/uL (4.0-11.0)
[2020-12-05 20:30] LABS: CALCIUM 8.8 mg/dL (8.5-10.1); CREATININE 0.5 mg/dL (0.6-1.0); GFR 136.6
[2020-12-05 20:35] LABS: ALBUMIN 3.5 g/dL (3.4-5.0); MAGNESIUM 1.8 mg/dL (1.8-2.4); TOTAL BILIRUBIN 0.2 mg/dL (0.2-1.0); TOTAL PROTEIN 6.9 g/dL (6.4-8.2)
[2020-12-05 21:00] VITALS: BP 129/80
== END 2020-12-05 21:13 | disposition home or self-care (01) ==
LOC: ER 17:31
DX: N92.1 Excessive and frequent menstruation with irregular cycle (principal); N83.292 Other ovarian cyst, left side; N88.8 Other specified noninflammatory disorders of cervix uteri; E11.9 Type 2 diabetes mellitus without complications; Z98.51 Tubal ligation status; Z98.890 Other specified postprocedural states
CPT/HCPCS: 76830; 80053; 81001; 81025; 83735; 85025; 87086; 87491; 87591; 96360; 99284; J7030; Q0111

== ENCOUNTER 2021-06-22 21:25 | Emergency (ER) | payer SELFPAY ==
[~2021-06-22] VITALS: Ht 165.1 cm; Wt 93.2 kg
[~2021-06-22 21:25] MED LIST changes: -CLIN150C15 PO; +CLIN150C16 PO
[2021-06-22 22:26] LABS: INFLUENZA A PATIENT NEGATIVE (NEGATIVE); INFLUENZA B PATIENT NEGATIVE (NEGATIVE)
--- NOTE | 2021-06-22 22:55 | PHYS DOC ---
Past Medical History Past Medical History: Diabetes-Type II, Other Additional Past Medical Histor: Gestational Diabetes with last . Past Surgical History: , Tubal ligation Smoking Status: Never Smoker Alcohol Use: Rarely Drug Use: None General Adult EDM: Chief Complaint: SHORTNESS OF BREATH HPI: HPI: Patient is a 41-year-old female that presents today with cough and nasal congestion for the last 4 days with worsening symptoms the last 2. 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 Patient denies fever and chills or chills shortness of breath Review of Systems: Review of Systems: Constitutional: Denies fever or chills. [] Eyes: Denies change in visual acuity. [] HENT: Denies nasal congestion or sore throat. [] Respiratory: cough or denies shortness of breath. [] Cardiovascular: Denies chest pain or edema. [] GI: Denies abdominal pain, nausea, vomiting, bloody stools or diarrhea. [] : Denies dysuria. [] Musculoskeletal: Denies back pain or joint pain. [] Integument: Denies rash. [] Neurologic: Denies headache, focal weakness or sensory changes. [] Endocrine: Denies polyuria or polydipsia. [] Lymphatic: Denies swollen glands. [] Psychiatric: Denies depression or anxiety. [] Heart Score: C/O Chest Pain: N/A Risk Factors: Risk Factors: DM, Current or recent (<one month) smoker, HTN, HLP, family history of CAD, obesity. Risk Scores: Score 0 - 3: 2.5% MACE over next 6 weeks - Discharge Home Score 4 - 6: 20.3% MACE over next 6 weeks - Admit for Clinical Observation Score 7 - 10: 72.7% MACE over next 6 weeks - Early Invasive Strategies Current Medications: Metformin Allergies: Allergies: Allergies Coded Allergies Type Severity Reaction Last Updated Verified Penicillins Allergy Intermediate 06/22/21 Yes Physical Exam: PE: Constitutional: Well developed, well nourished, no acute distress, non-toxic appearance. [] HENT: Normocephalic, atraumatic, bilateral external ears normal, oropharynx moist, no oral exudates, nares red, nasal congestion noted, frontal sinus pain with palpation. Eyes: PERRLA, EOMI, conjunctiva normal, no discharge. [] Neck: Normal range of motion, no tenderness, supple, no stridor. [] Cardiovascular:Heart rate regular rhythm, no murmur [] Lungs & Thorax: Bilateral breath sounds clear to auscultation, nonproductive cough Abdomen: Bowel sounds normal, soft, no tenderness, no masses, no pulsatile masses. [] Skin: Warm, dry, no erythema, no rash. [] Back: No tenderness, no CVA tenderness. [] Extremities: No tenderness, no cyanosis, no clubbing, ROM intact, no edema. [] Neurologic: Alert and oriented X 3, normal motor function, normal sensory function, no focal deficits noted. [] Psychologic: Affect normal, judgement normal, mood normal. [] Current Patient Data: Labs: Laboratory Tests Test 06/22/21 22:00 Influenza Type A Antigen Negative (NEGATIVE) Influenza Type B Antigen Negative (NEGATIVE) SARS-CoV-2 Antigen (Rapid) Negative (NEGATIVE) Vital Signs: Vital Signs Date Time Temp Pulse Resp B/P (MAP) Pulse Ox O2 Delivery O2 Flow Rate FiO2 06/22/21 21:51 98.0 89 15 124/71 (88) 100 Room Air 98.0 EKG: EKG: [] Radiology/Procedures: Radiology/Procedures: [] Course & Med Decision Making: Course & Med Decision Making Pertinent Labs and Imaging studies reviewed. (See chart for details) 2240 reviewed negative rapid Covid results with patient, informed patient that PRC which is the more accurate test results will not be available for 48 hours. Patient verbalized understanding of this instructed to self isolate patient, u ntil results are back. Patient given instructions to return for increased shortness of breath cough or any other concerns that she may have. Blood pressure 117/74, heart rate 77, O2 saturations are 97% Dragon Disclaimer: Akua Disclaimer: This electronic medical record was generated, in whole or in part, using a voice recognition dictation system. Departure Departure Impression: Primary Impression: Suspected COVID-19 virus infection Disposition: HOME / SELF CARE / HOMELESS Condition: STABLE Referrals: NO PCP (PCP) Patient Instructions: Upper Respiratory Infection, Adult Additional Instructions: Patient is given home isolation instructions for COVID-19 handout Patient is instructed to treat body aches pains with [id number] Tylenol and/or ibuprofen per label directed Patient is to make sure she stays hydrated Stay off work until your lab results are back, self isolate until your laboratory results are back. Return to the emergency department for increased shortness of breath, new confusion, inability to stay awake, or chest pain Follow-up with primary care or clinic as needed MIKAEL HALL APRN Jun 22, 2021 22:55
[2021-06-22 23:21] VITALS: BP 114/67
--- NOTE | 2021-06-25 16:16 | NUR ---
IP: Attempted to contact pt concerning covid results. No answer, left a voicemail to return the call. Addendum: 06/25/21 at 1642 by ЕЛЕНА FUENTES RN IP: Pt returned my call. I informed pt of negative covid test. Pt verbalized understanding.
== END 2021-06-22 23:32 | disposition home or self-care (01) ==
LOC: ER 21:25
DX: R05.9 Cough, unspecified (principal); R09.81 Nasal congestion; E11.9 Type 2 diabetes mellitus without complications; Z20.822 Contact with and (suspected) exposure to COVID-19; Z88.0 Allergy status to penicillin
CPT/HCPCS: 87426; 87804; 99285; U0003; U0005

== ENCOUNTER 2021-06-25 13:24 | Emergency (ER) | payer SELFPAY ==
[~2021-06-25] VITALS: Ht 165.1 cm; Wt 93.2 kg
[2021-06-25 13:55] VITALS: BP 130/80
== END 2021-06-25 14:37 | disposition left against medical advice (07) ==
LOC: ER 13:24
DX: R09.81 Nasal congestion (principal); R05.9 Cough, unspecified; R51.9 Headache, unspecified; K08.89 Other specified disorders of teeth and supporting structures; Z53.21 Procedure and treatment not carried out due to patient leaving prior to being seen by health care provider

== ENCOUNTER 2021-06-26 16:04 | Emergency (ER) | payer SELFPAY ==
[~2021-06-26] VITALS: Ht 165.1 cm; Wt 92.9 kg
[2021-06-26 19:08] VITALS: BP 143/91
== END 2021-06-26 22:59 | disposition left against medical advice (07) ==
LOC: ER 16:04
DX: R09.81 Nasal congestion (principal); R05.9 Cough, unspecified; K08.89 Other specified disorders of teeth and supporting structures; R22.0 Localized swelling, mass and lump, head; Z53.21 Procedure and treatment not carried out due to patient leaving prior to being seen by health care provider